=== PATIENT | female | born 1935 | race Two or more races ===

== ENCOUNTER 2025-05-01 08:24 | Emergency (ER) | payer OTHER ==
[~2025-05-01] VITALS: Ht 152.4 cm; Wt 59.9 kg
[~2025-05-01 08:24] MED LIST: ALTACE10 MG PO; CLARITIN10 M1 PO; NORVASC10 MG PO; TOPROL XL50 M1 PO
[2025-05-01] MEDS ORDERED: KETOROLAC TROMETHAMINE 30 MG VIAL ONE (10:25)
[2025-05-01] MEDS ORDERED: DEXAMETHASONE SODIUM PHOSPHATE 4 MG/ML VIAL ONE (10:25)
[2025-05-01] MEDS ORDERED: DEXAMETHASONE SODIUM PHOSPHATE 4 MG/ML VIAL IM ONE (10:30)
[2025-05-01] MEDS ORDERED: KETOROLAC TROMETHAMINE 15 MG VIAL IM ONE (10:30)
== END 2025-05-01 14:54 | disposition home or self-care (01) ==
LOC: ER 08:24
DX: M25.531 Pain in right wrist (principal); D69.6 Thrombocytopenia, unspecified; Z91.018 Allergy to other foods
CPT/HCPCS: 73100; 96372; 99283; J1100; J1885